=== PATIENT | female | born 1975 | race Caucasian/White ===

== ENCOUNTER 2017-11-04 12:30 | Emergency (ER) | payer OTHER ==
[2017-11-04 13:27] VITALS: BP 139/92; PULSE 73; TEMP 99.1; BMI 40.3
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
== END 2017-11-04 14:11 | disposition home or self-care (01) ==
LOC: FER 12:30
DX: Z77.21 Contact with and (suspected) exposure to potentially hazardous body fluids (principal)
CPT/HCPCS: 71046-TC-FY; 99282-25

== ENCOUNTER 2017-11-22 07:02 | Day surgery (SDC) | payer OTHER ==
[2017-11-19 14:47] VITALS: BMI 41.4
[2017-11-22] MEDS ORDERED: PHENYLEPHRINE HCL 10 MG/1 ML SINGLE DOSE VIAL ONE (07:49)
[2017-11-22] MEDS ORDERED: PROPOFOL 20 ML ONE ×2 (07:49)
[2017-11-22] MEDS ORDERED: SUCCINYLCHOLINE CHLORIDE 200 MG/10 ML VIAL ONE (07:49)
[2017-11-22] MEDS ORDERED: EPINEPHrine 1:10,000 (P-F SYR) 1 MG/10 ML DISP.SYRIN ONE (07:49)
[2017-11-22 08:30] VITALS: TEMP 98.2
[2017-11-22 09:31] VITALS: BP 133/84; PULSE 71
--- NOTE | 2017-11-24 12:04 | PATH ---
Surgical Pathology Report Patient Name: DAVEY HEATH [facility]. Rec. #: [id number] /Age/Gender: 1975 (Age: 42) / F Account: [id number] Location: [facility]-ENDOSCOPY Taken: 11/22/2017 Received: 11/22/2017 Reported: 11/24/2017 Physicians: Julianna Gamble M.D. Specimen(s) Received A: BX ANTRUM B: BX BODY Clinical History Dyspepsia, heartburn Postoperative diagnosis: Bile reflux gastritis Final Diagnosis A. GASTRIC ANTRUM, BIOPSY: GASTRIC MUCOSA WITH REACTIVE GASTROPATHY. IMMUNOSTAIN IS NEGATIVE FOR H. PYLORI ORGANISMS. B. GASTRIC BODY, BIOPSY: GASTRIC MUCOSA WITH MILD CHRONIC GASTRITIS. IMMUNOSTAIN IS NEGATIVE FOR H. PYLORI ORGANISMS. Electronically Signed Shireen Vazquez M.D. Gross Description A. Received in formalin, labeled "biopsy gastric antrum" are 2 be, irregular portions of soft tissue averaging 0.3 cm. in greatest dimension. The specimens are submitted in toto in one cassette. B. Received in formalin, labeled "biopsy gastric body" are 4 be, irregular portions of soft tissue ranging from 0.2-0.7 cm. in greatest dimension. The specimens are submitted in toto in one cassette. 11/22/201711/22/2017
== END 2017-11-22 09:31 | disposition home or self-care (01) ==
LOC: JASU-ENDO 07:02
PROVIDERS: ATTEND Internal Medicine Gastroenterology
PROC: 0DB68ZX Excision of Stomach, Via Natural or Artificial Opening Endoscopic, Diagnostic (ICD-10-PCS; principal; 2017-11-22 08:00)
DX: K29.70 Gastritis, unspecified, without bleeding (principal); K21.9 Gastro-esophageal reflux disease without esophagitis
CPT/HCPCS: 88305-TC; 88342-TC

== ENCOUNTER 2019-02-18 10:52 | Emergency (ER) | payer OTHER ==
[2019-02-18 11:03] VITALS: BP 126/77; PULSE 73; TEMP 98.2; BMI 33.9
[2019-02-18] MEDS ORDERED: IBUPROFEN 600 MG TABLET (FP) PO ONE ×2 (11:48→11:50)
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
== END 2019-02-18 12:09 | disposition home or self-care (01) ==
LOC: FER 10:52
DX: S13.4XXA Sprain of ligaments of cervical spine, initial encounter (principal); V43.62XA Car passenger injured in collision with other type car in traffic accident, initial encounter; Y93.89 Activity, other specified; Y92.410 Unspecified street and highway as the place of occurrence of the external cause; I10 Essential (primary) hypertension; Z98.84 Bariatric surgery status; Z87.891 Personal history of nicotine dependence
CPT/HCPCS: 99282-25

== ENCOUNTER 2020-06-10 19:25 | Emergency (ER) | payer OTHER | END 2020-06-10 19:31 | disposition home or self-care (01) | LOC: JVIRT 19:25 | DX: U07.1 COVID-19 (principal) | CPT/HCPCS: C9803; Q3014-GT; U0003 ==

== ENCOUNTER 2020-06-20 16:02 | Emergency (ER) | payer OTHER ==
[2020-06-20 16:19] VITALS: BP 151/94; PULSE 81; TEMP 97.9; BMI 40.3
[2020-06-20 17:52] LABS: BASO % 4.6 % (0-2.0); EOS % 4.2 % (0-4.5); HEMATOCRIT 42.9 % (32.4-45.2); HEMOGLOBIN 13.9 GM/dl (10.7-15.3); LYMPH % 29.9 % (8-40); MCH 28.6 pg (25.7-33.7); MCHC 32.5 g/dl (32.0-36.0); MEAN PLT VOLUME 7.7 fl (7.5-11.1); MONO % 8.8 % (3.8-10.2); NEUT % 52.5 % (42.8-82.8); PLATELET COUNT 279 K/MM3 (134-434); RBC 4.88 M/mm3 (3.60-5.2); WHITE BLOOD COUNT 8.2 K/mm3 (4.0-10.8)
[2020-06-20 18:05] LABS: ALBUMIN 3.8 g/dl (3.4-5.0); BILIRUBIN,TOTAL 0.4 mg/dl (0.2-1); CALCIUM 9.2 mg/dl (8.5-10); CREATININE 0.6 mg/dl (0.55-1.3); POTASSIUM 3.8 mmol/L (3.5-5.1); TOT PROT 7.5 g/dl (6.4-8.2)
[2020-06-20] MEDS ORDERED: KETOROLAC TROMETHAMINE 30 MG/1 ML VIAL IM ONE (18:45)
[2020-06-20] MEDS ORDERED: KETOROLAC TROMETHAMINE 30 MG/1 ML VIAL ONE (19:00)
== END 2020-06-20 19:08 | disposition home or self-care (01) ==
LOC: FER 16:02
PROC: 3E0233Z Introduction of Anti-inflammatory into Muscle, Percutaneous Approach (ICD-10-PCS; principal; 2020-06-20)
DX: M54.41 Lumbago with sciatica, right side (principal)
CPT/HCPCS: 36415; 71045-TC-FY; 80053; 82550; 84484; 85025; 93005; 93970-TC; 99285-25

== ENCOUNTER 2020-11-08 04:28 | Day surgery (SDC) | payer OTHER ==
[2020-11-06 15:56] VITALS: BMI 41.6
[2020-11-08 08:30] VITALS: TEMP 97.5
[2020-11-08 08:54] VITALS: PULSE 67
[2020-11-08 09:15] VITALS: BP 149/90
== END 2020-11-08 09:23 | disposition home or self-care (01) ==
LOC: JASU-ENDO 04:28
PROVIDERS: ATTEND Internal Medicine Gastroenterology
PROC: 0DB78ZX Excision of Stomach, Pylorus, Via Natural or Artificial Opening Endoscopic, Diagnostic (ICD-10-PCS; 2020-11-08)
PROC: 0DB28ZX Excision of Middle Esophagus, Via Natural or Artificial Opening Endoscopic, Diagnostic (ICD-10-PCS; 2020-11-08)
PROC: 0DB38ZX Excision of Lower Esophagus, Via Natural or Artificial Opening Endoscopic, Diagnostic (ICD-10-PCS; 2020-11-08)
PROC: 0DB98ZX Excision of Duodenum, Via Natural or Artificial Opening Endoscopic, Diagnostic (ICD-10-PCS; principal; 2020-11-08 08:00)
DX: K29.50 Unspecified chronic gastritis without bleeding (principal); K29.80 Duodenitis without bleeding; K21.00 Gastro-esophageal reflux disease with esophagitis, without bleeding; K25.3 Acute gastric ulcer without hemorrhage or perforation; R13.10 Dysphagia, unspecified; R12 Heartburn
CPT/HCPCS: 88305-TC; 88342-TC

== ENCOUNTER 2021-07-13 19:48 | Emergency (ER) | payer OTHER ==
[2021-07-13 19:58] VITALS: BP 154/104; PULSE 83; TEMP 98.6; BMI 32.3
[2021-07-15 09:07] LABS: SARS-CoV-2 NAA Not Detected (Not Detected)
== END 2021-07-13 20:04 | disposition home or self-care (01) ==
LOC: FER 19:48
DX: J06.9 Acute upper respiratory infection, unspecified (principal)
CPT/HCPCS: 87804; 87807; 99283-25; C9803; U0003; U0005

== ENCOUNTER 2022-04-23 23:59 | Emergency (ER) | payer OTHER ==
[2022-04-24 00:06] VITALS: BP 137/85; PULSE 75; RESP 16; TEMP 97.7; BMI 37.1
[2022-04-24] MEDS ORDERED: OFLOXACIN 0.3% OTIC SOLUTION 5 ML BOTTLE AS ONE (00:06)
== END 2022-04-24 00:27 | disposition home or self-care (01) ==
LOC: FER 23:59
DX: B34.9 Viral infection, unspecified (principal); H60.501 Unspecified acute noninfective otitis externa, right ear
CPT/HCPCS: 0241U-QW; 99283-25

== ENCOUNTER 2022-08-14 22:01 | Emergency (ER) | payer OTHER ==
[2022-08-14 22:14] VITALS: BMI 37.1
[2022-08-14 22:35] VITALS: BP 137/84; PULSE 74; RESP 18; TEMP 98.4
== END 2022-08-14 22:39 | disposition home or self-care (01) ==
LOC: FER 22:01
DX: R05.1 Acute cough (principal); R09.81 Nasal congestion; R51.9 Headache, unspecified; Z20.822 Contact with and (suspected) exposure to COVID-19
CPT/HCPCS: 0241U-QW; 99283-25

== ENCOUNTER 2022-11-28 02:57 | Emergency (ER) | payer OTHER ==
[2022-11-28 03:26] VITALS: BP 137/85; PULSE 64; RESP 18; TEMP 97.7; BMI 40.3
== END 2022-11-28 04:25 | disposition left against medical advice (07) ==
LOC: JER 02:57
DX: M79.601 Pain in right arm (principal); M79.604 Pain in right leg; M25.561 Pain in right knee
CPT/HCPCS: 99281-25

== ENCOUNTER 2022-12-04 04:08 | Day surgery (SDC) | payer OTHER ==
[2022-12-02 12:58] VITALS: BMI 43.9
[2022-12-04 09:05] VITALS: TEMP 97.8
[2022-12-04 09:31] VITALS: BP 133/90; PULSE 63; RESP 17
== END 2022-12-04 09:46 | disposition home or self-care (01) ==
LOC: JASU-ENDO 04:08
PROVIDERS: ATTEND Internal Medicine Gastroenterology
PROC: 0DB78ZX Excision of Stomach, Pylorus, Via Natural or Artificial Opening Endoscopic, Diagnostic (ICD-10-PCS; 2022-12-04)
PROC: 0DB98ZX Excision of Duodenum, Via Natural or Artificial Opening Endoscopic, Diagnostic (ICD-10-PCS; principal; 2022-12-04 08:30)
DX: K29.50 Unspecified chronic gastritis without bleeding (principal); K21.00 Gastro-esophageal reflux disease with esophagitis, without bleeding; K44.9 Diaphragmatic hernia without obstruction or gangrene; K31.7 Polyp of stomach and duodenum; Z98.84 Bariatric surgery status
CPT/HCPCS: 88305-TC; 88342-TC

== ENCOUNTER 2022-12-17 00:51 | Emergency (ER) | payer OTHER ==
[2022-12-17 00:58] VITALS: BP 154/95; PULSE 69; RESP 18; TEMP 97.7; BMI 40.3
[2022-12-17] MEDS ORDERED: ACETAMINOPHEN 500 MG TABLET (FP) PO ONE (01:16)
[2022-12-17] MEDS ORDERED: AZITHROMYCIN 250 MG TABLET PO STA (01:17)
[2022-12-17] MEDS ORDERED: ACETAMINOPHEN 500 MG TABLET (FP) ONE (01:25)
[2022-12-17] MEDS ORDERED: AZITHROMYCIN 500 MG TABLET ONE (01:26)
== END 2022-12-17 01:40 | disposition home or self-care (01) ==
LOC: FER 00:51
DX: J01.00 Acute maxillary sinusitis, unspecified (principal)
CPT/HCPCS: 99283-25

== ENCOUNTER 2023-04-20 11:54 | Emergency (ER) | payer OTHER ==
[2023-04-20 12:10] VITALS: BP 154/100; PULSE 96; RESP 16; TEMP 100; BMI 36.6
[2023-04-20] MEDS ORDERED: IBUPROFEN 400 MG TABLET (FP) PO ONE ×2 (12:31→12:41)
== END 2023-04-20 12:48 | disposition home or self-care (01) ==
LOC: FER 11:54
DX: R50.9 Fever, unspecified (principal); R51.9 Headache, unspecified; J02.9 Acute pharyngitis, unspecified; R05.9 Cough, unspecified; R09.89 Other specified symptoms and signs involving the circulatory and respiratory systems; U07.1 COVID-19
CPT/HCPCS: 0241U-QW; 99283-25

== ENCOUNTER 2023-07-20 10:58 | Emergency (ER) | payer OTHER ==
[2023-07-20 11:08] VITALS: BP 153/81; PULSE 77; RESP 18; TEMP 98.5; BMI 40.3
[2023-07-20] MEDS ORDERED: METOCLOPRAMIDE HCL INJECTION 10 MG/2 ML VIAL IVPB ONE (11:13)
[2023-07-20] MEDS ORDERED: SODIUM CHLORIDE 0.9% 500 ML INFUS.BAG IV ONE (11:13)
[2023-07-20] MEDS ORDERED: ACETAMINOPHEN 1000 MG/100 ML BAG IVPB ONE (11:13)
[2023-07-20] MEDS ORDERED: METOCLOPRAMIDE HCL INJECTION 10 MG/2 ML VIAL ONE (11:32)
[2023-07-20] MEDS ORDERED: ACETAMINOPHEN INJECTION 100 ML IVPB ONE (11:33)
[2023-07-20 11:55] LABS: HEMATOCRIT 44.7 % (32.4-45.2); HEMOGLOBIN 14.6 G/dL (10.7-15.3); MCH 29.1 pg (25.7-33.7); MCHC 32.6 g/dl (32.0-36.0); MEAN CELL VOLUME 89.3 fl (80-96); MEAN PLT VOLUME 7.8 fl (7.5-11.1); PLATELET COUNT 241.8 10^3/uL (134-434); WHITE BLOOD COUNT 8.3 10^3/uL (4.0-10.8)
[2023-07-20 12:11] LABS: BILIRUBIN,TOTAL 0.5 mg/dl (0.2-1); CREATININE 0.6 mg/dl (0.6-1.3); MAGNESIUM 1.8 mg/dL (1.8-2.4); PHOSPHOROUS 2.1 (2.5-4.9); POTASSIUM 3.9 mmol/L (3.5-5.1); TOT PROT 7.1 g/dl (6.4-8.2)
[2023-07-20 12:51] LABS: PLATELET ESTIMATE ADEQUATE
== END 2023-07-20 13:15 | disposition home or self-care (01) ==
LOC: FER 10:58
PROC: 3E033NZ Introduction of Analgesics, Hypnotics, Sedatives into Peripheral Vein, Percutaneous Approach (ICD-10-PCS; principal; 2023-07-20)
PROC: 3E033GC Introduction of Other Therapeutic Substance into Peripheral Vein, Percutaneous Approach (ICD-10-PCS; 2023-07-20)
DX: R11.2 Nausea with vomiting, unspecified (principal); R19.7 Diarrhea, unspecified; R10.13 Epigastric pain; Z20.822 Contact with and (suspected) exposure to COVID-19
CPT/HCPCS: 0241U-QW; 36415; 80053; 83690; 83735; 84100; 85025; 99284-25

== ENCOUNTER 2023-09-12 20:38 | Emergency (ER) | payer OTHER ==
[2023-09-12 20:54] VITALS: BP 154/89; PULSE 82; RESP 18; TEMP 97.8; BMI 32.3
[2023-09-12 22:49] LABS: THROAT:GRP A STREP NOT DETECTED (NOTDETECTED)
== END 2023-09-12 21:25 | disposition home or self-care (01) ==
LOC: FER 20:38
DX: J02.9 Acute pharyngitis, unspecified (principal); R05.9 Cough, unspecified; R09.81 Nasal congestion; R50.9 Fever, unspecified; J06.9 Acute upper respiratory infection, unspecified; Z20.822 Contact with and (suspected) exposure to COVID-19
CPT/HCPCS: 0241U-QW; 87651; 99283-25

== ENCOUNTER 2024-01-02 21:22 | Observation (INO) | payer OTHER ==
[2024-01-02] MEDS ORDERED: LIDOCAINE 5% TOPICAL PATCH ONE (22:21)
[2024-01-02] MEDS ORDERED: ACETAMINOPHEN INJECTION 100 ML IVPB ONE (22:21)
[2024-01-02] MEDS ORDERED: METOCLOPRAMIDE HCL INJECTION 10 MG/2 ML VIAL ONE (22:21)
[2024-01-02] MEDS: ACETAMINOPHEN 1000 MG/100 ML BAG IVPB ONE (22:45)
[2024-01-02] MEDS: SODIUM CHLORIDE 0.9% 500 ML INFUS.BAG IV ONE (22:45)
[2024-01-02] MEDS: LIDOCAINE 5% TOPICAL PATCH TP ONE (22:46)
[2024-01-02] MEDS: KETOROLAC TROMETHAMINE 30 MG/1 ML VIAL IM ONE (22:46)
[2024-01-02] MEDS: METOCLOPRAMIDE HCL INJECTION 10 MG/2 ML VIAL IVPB ONE (22:46)
[2024-01-02] MEDS: LIDOCAINE PATCH REMOVAL MC SCH (22:47)
[2024-01-02 22:49] LABS: EOS % 3.6 % (0-4.5); HEMATOCRIT 43.6 % (32.4-45.2); HEMOGLOBIN 14.8 GM/dL (10.7-15.3); LYMPH % 28.8 % (8-40); MCHC 33.9 g/dl (32.0-36.0); MEAN CELL VOLUME 88.3 fl (80-96); MEAN PLT VOLUME 7.4 fl (7.5-11.1); MONO % 7.6 % (3.8-10.2); PLATELET COUNT 283 10^3/uL (134-434); RBC 4.94 M/mm3 (3.60-5.2); RDW 13.7 % (11.6-15.6)
[2024-01-02 23:15] LABS: CALCIUM 8.7 mg/dL (8.5-10.1)
[2024-01-02 23:16] LABS: ALBUMIN 3.6 g/dl (3.4-5.0); BLOOD UREA NITROGEN 14.1 mg/dL (7-18)
[2024-01-02 23:19] LABS: CREATININE 0.8 mg/dL (0.55-1.3)
[2024-01-02 23:20] LABS: TOT PROT 7.9 g/dl (6.4-8.2)
[2024-01-02 23:21] LABS: BILIRUBIN,TOTAL 0.4 mg/dL (0.2-1)
[2024-01-03] MEDS: ASPIRIN 81 MG CHEWABLE TABLETS PO ONE (00:40)
[2024-01-03] MEDS ORDERED: ASPIRIN 81 MG CHEWABLE TABLETS ONE (00:43)
[2024-01-03 02:08] VITALS: BMI 42.6
[2024-01-03] MEDS: ACETAMINOPHEN 325 MG TABLET (FP) PO PRN (07:35)
[2024-01-03] MEDS: LIDOCAINE 5% TOPICAL PATCH TP SCH (13:08)
[2024-01-03] MEDS: LIDOCAINE PATCH REMOVAL MC ONE (14:03)
[2024-01-03] MEDS ORDERED: ENALAPRILAT DIHYDRATE 1.25 MG/1 ML VIAL IVPB PRN (18:41)
[2024-01-03] MEDS: METOPROLOL TARTRATE 25 MG TABLET (FP) PO ONE (19:55)
[2024-01-03] MEDS: cloNIDine HCL 0.1 MG TABLET PO ONE ×2 (19:56)
[2024-01-03] MEDS: LIDOCAINE PATCH REMOVAL MC SCH (21:43)
[2024-01-04 07:52] LABS: BASO % 0.7 % (0-2.0); EOS % 4.7 % (0-4.5); HEMATOCRIT 44.2 % (32.4-45.2); LYMPH % 40.9 % (8-40); MCH 29.9 pg (25.7-33.7); MCHC 33.8 g/dl (32.0-36.0); MEAN CELL VOLUME 88.3 fl (80-96); MEAN PLT VOLUME 8.3 fl (7.5-11.1); MONO % 7.4 % (3.8-10.2); NEUT % 46.3 % (42.8-82.8); PLATELET COUNT 267 10^3/uL (134-434); RBC 5.01 M/mm3 (3.60-5.2)
[2024-01-04 08:07] LABS: POTASSIUM 3.9 mmol/L (3.5-5.1)
[2024-01-04 08:10] LABS: CALCIUM 8.9 mg/dL (8.5-10.1)
[2024-01-04 08:14] LABS: CREATININE 0.6 mg/dL (0.55-1.3)
[2024-01-04] MEDS: REGADENOSON 0.4 MG/5 ML PRE-FILLED SYRINGE IVPUSH ONE (10:40)
[2024-01-04] MEDS: ASPIRIN 81 MG CHEWABLE TABLETS PO SCH (12:04)
[2024-01-04] MEDS: HYDROCHLOROTHIAZIDE 25 MG TABLET (FP) PO SCH (13:06)
[2024-01-04 23:58] VITALS: RESP 18
[2024-01-05 10:50] VITALS: BP 124/68; PULSE 79; TEMP 97.9
== END 2024-01-05 11:55 | disposition home or self-care (01) ==
LOC: JER 21:22 → JERBED 23:52 → J4S 01-03 01:21 → J4W 01-03 07:31 → J4S 01-03 14:00
PROVIDERS: ADMIT Internal Medicine; ATTEND Internal Medicine
PROC: 3E033NZ Introduction of Analgesics, Hypnotics, Sedatives into Peripheral Vein, Percutaneous Approach (ICD-10-PCS; principal; 2024-01-02)
PROC: 3E033GC Introduction of Other Therapeutic Substance into Peripheral Vein, Percutaneous Approach (ICD-10-PCS; 2024-01-02)
PROC: 3E0337Z Introduction of Electrolytic and Water Balance Substance into Peripheral Vein, Percutaneous Approach (ICD-10-PCS; 2024-01-02)
DX: R07.9 Chest pain, unspecified (principal); R79.89 Other specified abnormal findings of blood chemistry; R51.9 Headache, unspecified; E66.01 Morbid (severe) obesity due to excess calories; Z68.41 Body mass index [BMI] 40.0-44.9, adult; I10 Essential (primary) hypertension; Z98.84 Bariatric surgery status; K29.70 Gastritis, unspecified, without bleeding; Z86.16 Personal history of COVID-19; Z90.49 Acquired absence of other specified parts of digestive tract
CPT/HCPCS: 0241U-QW; 36415; 71046-TC-FY; 78452-TC; 80048; 80053; 80061; 84443; 84484; 84703; 85025; 93005; 93010; 93017; 93306-TC; 99285-25; A9502; G0378; J0131; J2785

== ENCOUNTER 2024-05-26 04:53 | Day surgery (SDC) | payer OTHER ==
[2024-05-24 14:39] VITALS: BMI 41.5
[2024-05-26 08:27] VITALS: TEMP 98
[2024-05-26 09:01] VITALS: BP 151/60; PULSE 71; RESP 15
== END 2024-05-26 09:45 | disposition home or self-care (01) ==
LOC: JASU-ENDO 04:53
PROVIDERS: ATTEND Internal Medicine Gastroenterology
PROC: 0DJD8ZZ Inspection of Lower Intestinal Tract, Via Natural or Artificial Opening Endoscopic (ICD-10-PCS; principal; 2024-05-26 08:00)
DX: Z12.11 Encounter for screening for malignant neoplasm of colon (principal); K64.8 Other hemorrhoids; K57.30 Diverticulosis of large intestine without perforation or abscess without bleeding; Z86.0100 Personal history of colon polyps, unspecified; Z80.0 Family history of malignant neoplasm of digestive organs

== ENCOUNTER 2024-10-12 17:53 | Observation (INO) | payer OTHER ==
[2024-10-12 19:33] LABS: ABSOLUTE IMMATURE GRANULOCYTES 0.02 x10^3/uL (0.0-0.031); BASOPHILS # 0.05 x10^3/uL (0.01-0.08); EOSINOPHIL % 3.1 % (0.7-5.8); EOSINOPHILS # 0.25 x10^3/uL (0.04-0.36); HEMATOCRIT 44.7 % (34.1-44.9); HEMOGLOBIN 14.4 g/dL (11.2-15.7); MCHC 32.2 g/dl (32.2-35.5); MEAN CELL VOLUME 88.7 fl (79.4-94.8); MEAN PLT VOLUME 9.4 fl (9.4-12.3); MONOCYTE # 0.56 x10^3/uL (0.24-0.86); MONOCYTE % 6.9 % (4.7-12.5); PLATELET COUNT 245 x10^3/uL (182-369); RDW 12.4 % (12.2-17.1)
[2024-10-12 19:44] LABS: INR 1.02 (0.83-1.09); PROTHROMBIN TIME (PATIENT) 11.1 SEC (9.7-13.0)
[2024-10-12 20:01] LABS: POTASSIUM 3.9 mmol/L (3.5-5.1)
[2024-10-12 20:02] LABS: BLOOD UREA NITROGEN 14.1 mg/dL (7-18); CALCIUM 8.8 mg/dL (8.5-10.1)
[2024-10-12 20:03] LABS: ALBUMIN 3.5 g/dl (3.4-5.0)
[2024-10-12 20:06] LABS: CREATININE 0.7 mg/dL (0.55-1.3)
[2024-10-12 20:08] LABS: BILIRUBIN,TOTAL 0.4 mg/dL (0.2-1); TOT PROT 7.9 g/dl (6.4-8.2)
[2024-10-13 00:47] VITALS: BMI 39.9
[2024-10-13] MEDS: ACETAMINOPHEN 325 MG TABLET (FP) PO ONE (02:00)
[2024-10-13] MEDS: ASPIRIN 81 MG CHEWABLE TABLETS PO ONE (02:08)
[2024-10-13 06:57] LABS: ABSOLUTE IMMATURE GRANULOCYTES 0.03 x10^3/uL (0.0-0.031); BASOPHILS # 0.03 x10^3/uL (0.01-0.08); EOSINOPHIL % 3.6 % (0.7-5.8); EOSINOPHILS # 0.26 x10^3/uL (0.04-0.36); HEMATOCRIT 41.9 % (34.1-44.9); HEMOGLOBIN 13.6 g/dL (11.2-15.7); MCHC 32.5 g/dl (32.2-35.5); MEAN CELL VOLUME 88.8 fl (79.4-94.8); MONOCYTE # 0.52 x10^3/uL (0.24-0.86); MONOCYTE % 7.1 % (4.7-12.5); PLATELET COUNT 250 x10^3/uL (182-369); RDW 12.4 % (12.2-17.1)
[2024-10-13 07:21] LABS: POTASSIUM 3.8 mmol/L (3.5-5.1)
[2024-10-13 07:26] LABS: BLOOD UREA NITROGEN 12.2 mg/dL (7-18); CALCIUM 8.5 mg/dL (8.5-10.1)
[2024-10-13 07:28] LABS: CREATININE 0.7 mg/dL (0.55-1.3)
[2024-10-13] MEDS ORDERED: ACETAMINOPHEN 325 MG TABLET (FP) PO PRN (08:00)
[2024-10-13] MEDS: HYDROCHLOROTHIAZIDE 25 MG TABLET (FP) PO SCH (10:12)
[2024-10-13 12:53] VITALS: BP 138/73; PULSE 66; RESP 18; TEMP 97.9
[2024-10-14] MEDS ORDERED: ASPIRIN 81 MG CHEWABLE TABLETS PO SCH (10:00)
== END 2024-10-13 12:53 | disposition home or self-care (01) ==
LOC: JER 17:53 → JERBED 21:18 → J4S 10-13 00:24
PROVIDERS: ADMIT Internal Medicine; ATTEND Internal Medicine
DX: R07.9 Chest pain, unspecified (principal); I10 Essential (primary) hypertension; K29.70 Gastritis, unspecified, without bleeding; N92.0 Excessive and frequent menstruation with regular cycle; Z98.84 Bariatric surgery status; E66.01 Morbid (severe) obesity due to excess calories; Z86.16 Personal history of COVID-19; R79.89 Other specified abnormal findings of blood chemistry; Z90.49 Acquired absence of other specified parts of digestive tract; Z88.8 Allergy status to other drugs, medicaments and biological substances
CPT/HCPCS: 36415; 71045-TC-FY; 80048; 80053; 80061; 82962; 84484; 85025; 85610; 85730; 93005; 93010; 99285-25; G0378